=== PATIENT | male | born 1990 ===

== ENCOUNTER → 2017-02-14 | Day surgery (SDC) | payer OTHER ==
[2017-02-14] VITALS (11 sets, daily range): BP systolic 113–133; BP diastolic 63–74
[~2017-02-14] VITALS: Ht 175.3 cm; Wt 97.5 kg
[~2017-02-14] MED LIST: Bupivacaine w/Epi 0.25% 30ml Vial INJ ONE; DiphenhydrAMINE 50mg/ml Inj IVP PRN; Hydromorphone 0.5mg/0.5ml inj IVP PRN; Ketorolac 30mg Inj IV PRN; Ketorolac 30mg Inj ONE; LR 1000ml 1,000 ML IVLG SCH; LR 1000ml ONE; Meperidine 25mg/ml Inj IV PRN; Midazolam 2mg/2ml Inj ONE; Morphine Sulfate 2mg/ml Inj IVP PRN; NKM; NS Irrig 1000ml ONE; Propofol 10mg/ml 20ml IV ONE; Sterile Water Irrig 1000ml IRRIG ONE; Surgicel 4in x 8in TOPIC ONE; Tylenol #3 tab (300mg/30mg) ORAL PRN
--- NOTE | 2017-02-14 07:21 | Pre-Procedure Note/Attestation ---
Pre-Procedure Note/Attestation Complete Prior to Procedure Planned Procedure: right Procedure Narrative: right neck mass incisional biopsy Indications for Procedure Pre-Operative Diagnosis: large right neck mass, r/o lymphoma Attestation I attest that I discussed the nature of the procedure; its benefits; risks and complications; and alternatives (and the risks and benefits of such alternatives ), prior to the procedure, with the patient (or the patient's legal lifeline representatives). I attest that, if there was a reasonable possibility of needing a blood transfusion, the patient (or the patient's legal lifeline representatives) was given the [facility] standardized written summary, pursuant to the Freedom Gutierrez Blood Safety Act ([place] Health and Safety Code # 1645, as amended). I attest that I re-evaluated the patient just prior to the surgery and that there has been no change in the patient's H&P, except as documented below: JOSHUA SANDOVAL Feb 14, 2017 07:21
--- NOTE | 2017-02-14 08:11 | Anethesia Preoperative Eval ---
Anesthesia Pre-op PMH/ROS General Date of Evaluation: Feb 14, 2017 Time of Evaluation: 07:10 Anesthesiologist: Yarelis ASA Score: ASA 2 Mallampati Score Class I : Soft palate, uvula, fauces, pillars visible Class II: Soft palate, uvula, fauces visible Class III: Soft palate, base of uvula visible Class IV: Only hard plate visible Mallampati Classification: Class III Surgeon: Juliane Diagnosis: R neck mass Surgical Procedure: Incisional Bx of R neck mass Anesthesia History: none Family History: no anesthesia problems Allergies: Coded Allergies: No Known Allergies (Unverified , 02/13/17) Medications: see eMAR Past Medical History Cardiovascular: Denies: CAD, HTN, OR, arrhythmia, other, valve dz Pulmonary: Denies: COPD, HILLARY, asthma, other Gastrointestinal/Genitourinary: Denies: CRI, ESRD, GERD, other Neurologic/Psychiatric: Denies: CVA, TIA, dementia, depression/anxiety, other Endocrine: Denies: DM, hypothyroidism, other, steroids HEENT: Denies: KOTZEBUE (L), KOTZEBUE (R), cataract (L), cataract (R), glaucoma, other Hematology/Immune: Reports: anemia - lymphadenopaty, other - generalized lymphadenopathy, Denies: DVT, bleeding disorder Musculoskeletal/Integumentary: Denies: DDD, DJD, OA, RA, edema, other Other: other - overweight PMH Narrative: as above PSxH Narrative: None Anesthesia Pre-op Phys. Exam Physician Exam Last Vital Signs Date Time Temp Pulse Resp B/P Pulse Ox O2 Delivery O2 Flow Rate FiO2 02/14/17 06:32 98.2 86 18 121/65 99 Room Air Constitutional: NAD Neurologic: CN 2-12 intact Cardiovascular: RRR, no M/R/G Respiratory: CTA Gastrointestinal: S/NT/ND Airway Exam Mallampati Score: Class III MO: limited Neck: Swelling and tenderness on the R side ROM: limited Teeth: intact Dentures: no lower, no upper Anesthesia Pre-op A/P Labs see chart Risk Assessment & Plan Assessment: ASA 2 Plan: MAC Status Change Before Surgery: No Pre-Antibiotics Drug: Ancef 2 gr. Given Within 1 Hr of Incision: Yes Time Given: 07:40 VALDEZ ZELAYA M.D. Feb 14, 2017 08:11
--- NOTE | 2017-02-14 08:31 | Brief Operative Note ---
Immediate Post Operative Note Operative Note Pre-op Diagnosis: large right neck mass, r/o lymphoma Procedure: right neck mass biopsy (lymph node likely) Post-op Diagnosis: same Post-op Diagnosis: same as pre-op Findings: other - firm whitish gritty hard mass Surgeon: domingo Anesthesiologist: shannan Anesthesia: MAC Specimen: yes Complications: none Condition: stable Estimated Blood Loss: minimal Drains: none Implant(s) used?: No JOSHUA SANDOVAL Feb 14, 2017 08:31
--- NOTE | 2017-02-14 09:15 | Immediate Post-Op Evaluation ---
Immediate Post-Op Evalulation Immediate Post-Op Evalulation Procedure: Excisional Bx of R neck mass Date of Evaluation: Feb 14, 2017 Time of Evaluation: 08:39 IV Fluids: 800 Blood Products: none Estimated Blood Loss: <50 Urinary Output: none Blood Pressure Systolic: 124 Blood Pressure Diastolic: 68 Pulse Rate: 78 Respiratory Rate: 20 O2 Sat by Pulse Oximetry: 99 Temperature (Fahrenheit): 97.9 Pain Score (1-10): 2 Nausea: No Vomiting: No Complications none Patient Status: awake, patent, none Hydration Status: adequate VALDEZ ZELAYA M.D. Feb 14, 2017 09:15
--- NOTE | 2017-02-15 20:48 | Operative Note - Dictated ---
DATE OF SURGERY: 02/14/2017 SURGEON: Fred Cardozo M.D. POTATO CHIP MAKER: None. ANESTHESIOLOGIST: Jb Santoyo M.D. ANESTHESIA: Monitored anesthesia care with local. POSTOPERATIVE DIAGNOSIS: Giant right neck mass with diffuse adenopathy in the neck, mediastinum, bilateral axillary regions, and rule out lymphoma. POSTOPERATIVE DIAGNOSIS: Giant right neck mass with diffuse adenopathy in the neck, mediastinum, bilateral axillary regions, and rule out lymphoma. NAME OF OPERATION: Right neck mass incisional biopsy. Rule out lymphoma. FINDINGS AND INDICATIONS: The patient is a very pleasant 26-year-old, [place] male, who has a history of progressively enlarging right neck mass absence about the time of October last year. He first noticed it as a supraclavicular mass, which has been groin significantly to over a size mass which extends from above the mandible to the clavicle, CT scan of the head was normal. The neck showed a large mass deep into the neck, firm consistent with a large lymphoma, mediastinum and bilateral axillary areas also had significant adenopathy. After examining the patient, I advised him to undergo biopsy of this, which is done uneventfully as described. The mass consisted of a very firm whitish green mass, and a touch prep by the pathologist suggested Hodgkin's lymphoma. PROCEDURE: With the patient lying in the supine position on the operating table, under local anesthesia plus deep intravenous sedation to monitored anesthesia care with the entire right neck and mandibular area prepped and draped in a usual sterile fashion with Betadine, the firmness area on the right neck mass was incised through a transverse incision following skin lines subcutaneous tissues divided, and care was taken to dissect past the platysma, avoiding injury to any of the nerves or the superficial jugular vein, and then the mass was approached, area and several pieces were removed sharply obtaining hemostasis with the cautery. A small piece of Surgicel was also applied. The specimen was sent fresh to pathology were the touch prep revealed possible Hodgkin's lymphoma. The wound was then closed in layers with 3-0 Vicryl subcutaneous and 4-0 Vicryl subcuticular sutures and Steri-Strips. Marcaine 0.5% with epinephrine 15 mL were injected for long-acting local anesthetic. The patient tolerated the procedure well. ESTIMATED BLOOD LOSS: Less than 5 mL. Sponge and needle count correct. He went to the recovery room in stable condition. Fred Cardozo M.D. DR: VERONIKA JOB#: [id number] CC:
[2017-02-16 08:46] VITALS: BP 124/56
--- NOTE | 2017-02-16 08:46 | 48 Hour Post Anesthesia Eval ---
Post Anesthesia Evaluation Procedure: Excisional Bx of R neck mass Date of Evaluation: Feb 14, 2017 Time of Evaluation: 10:10 Blood Pressure Systolic: 124 0: 56 Pulse Rate: 78 Respiratory Rate: 22 Temperature (Fahrenheit): 97.6 O2 Sat by Pulse Oximetry: 98 Airway: patent Nausea: No Vomiting: No Pain Intensity: 2 Hydration Status: adequate Cardiopulmonary Status: stable Mental Status/LOC: patient returned to baseline Follow-up Care/Observations: n/a Post-Anesthesia Complications: none Follow-up care needed: ready to discharge VALDEZ ZELAYA M.D. Feb 16, 2017 08:46
== END | disposition home or self-care (01) ==
LOC: SUR 06:05
DX: R22.1 Localized swelling, mass and lump, neck (principal); D64.9 Anemia, unspecified; E66.9 Obesity, unspecified; Z87.891 Personal history of nicotine dependence
CPT/HCPCS: 21555; J1885; J2250; J2704; J7120; 94003; 94150